=== PATIENT | male | born 1995 | race Caucasian/White ===

== ENCOUNTER 2018-03-04 09:01 | Outpatient (CLI) | payer OTHER ==
--- NOTE | 2018-03-04 16:13 | MRI ---
MR OF THE LEFT KNEE WITHOUT CONTRAST: 03/04/18 INDICATION: Left knee pain for six years. COMPARISON: None. FINDINGS: No joint capsular distention is evident. No popliteal cyst is identified. The MCL, ACL, PCL, and LCLC are intact. There is some subtle increased T2 signal and edema seen withi n Hoffa's fat pad and anterior subcutaneous tissues adjacent to the proximal patellar tendon suspicio us for mild patellar tendonitis. The lateral and medial menisci are intact. No full thickness articular cartilage defect is evident. B one marrow signal intensity appears within normal limits. Small bone island is seen within the medial femoral condyle. IMPRESSION: Mild proximal patellar tendonitis. POS: [facility]
== END 2018-03-04 09:02 | disposition home or self-care (01) ==
LOC: SCSMRI 09:01
PROVIDERS: ATTEND Orthopaedic Surgery
DX: M23.92 Unspecified internal derangement of left knee (principal); M76.52 Patellar tendinitis, left knee